=== PATIENT | female | born 1960 | race American Indian/Alaskan Native ===

== ENCOUNTER 2018-06-28 09:30 | Day surgery (SDC) | payer MEDICARE ==
[~2018-06-28 09:30] MED LIST: ANCEF/STERILE WATER 2 GM/20 ML 2 GM/20 ML SYRINGE IV NR; NACL 0.9% 1000 ML 1,000 ML IV SCH
[2018-06-28 10:58] LABS: BUN/Creatinine Ratio 17; Basophils % (Auto) 0.8 % (0.0-1.8); Blood Urea Nitrogen 12 mg/dL (7-17); Calcium 9.1 mg/dL (8.4-10.2); Eosinophils # (Auto) 0.1 K/mm3 (0.0-0.4); Eosinophils % (Auto) 1.9 % (0.0-4.3); Hematocrit 38.5 % (30.3-42.9); Hemolysis Index 4; Lymphocytes # (Auto) 2.9 K/mm3 (1.2-5.4); Lymphocytes % (Auto) 50.5 % (13.4-35.0); Mean Corpuscular HGB Conc 34 % (30-34); Mean Corpuscular Volume 92 fl (79-97); Monocytes # (Auto) 0.4 K/mm3 (0.0-0.8); Monocytes % (Auto) 7.3 % (0.0-7.3); Platelet Count 286 K/mm3 (140-440); Red Cell Distribution Width 13.4 % (13.2-15.2)
[2018-06-28 10:59] LABS: INR 0.9 (0.87-1.13); Partial Thromboplastin Time 25.2 Sec. (24.2-36.6)
[2018-06-28] MEDS ORDERED: XYLOCAINE 2% INFILTRATI ONE (11:49)
[2018-06-28] MEDS ORDERED: HEPARIN/NS 5000 UNIT/500ML(CATH LAB) 1,000 ML IR ONE (11:49)
[2018-06-28] MEDS ORDERED: HEPARIN 10,000 UNITS/10 ML ONE (11:50)
[2018-06-28] MEDS ORDERED: SUBLIMAZE ONE (11:50)
[2018-06-28] MEDS ORDERED: VERSED ONE (11:50)
[2018-06-28] MEDS ORDERED: NACL 0.9% 500 ML 500 ML IV SCH (13:00)
[2018-06-28] MEDS ORDERED: NORCO 5/325 PO ONE (13:35)
--- NOTE | 2018-06-28 14:09 | Short Stay Summary ---
Short Stay Documentation Date of service: 06/28/18 - History Principal diagnosis: PVD with left leg pain H&P: obtained from office - Allergies and Medications Current Medications: Allergies amlodipine Allergy (Verified 06/28/18 09:47) Swelling Penicillins Allergy (Verified 06/28/18 09:47) Rash Active Medications Cefazolin Sodium (Ancef/Sterile Water 2 Gm/20 Ml) 2 gm in 20 mls @ 80 mls/hr IV PREOP NR; Protocol Stop: 06/28/18 23:59 Sodium Chloride (Nacl 0.9% 500 Ml) 500 mls @ 50 mls/hr IV DIRECT JASMINE - Brief post op/procedure progress note Date of procedure: 06/28/18 Pre-op diagnosis: PVD with left leg pain Post-op diagnosis: same Procedure: LLE diagnostic angiography Anesthesia: local Surgeon: CAMILA MANN Estimated blood loss: none Condition: stable - Disposition Condition at discharge: Good Disposition: [id number] TO HOME OR SELFCARE Short Stay Discharge Plan Activity: advance as tolerated Weight Bearing Status: Weight Bear as Tolerated Diet: regular Wound: keep clean and dry, per your surgeon's advice Follow up with: PRIMARY CARE, [Primary Care Provider] - 7 Days
--- NOTE | 2018-06-28 14:30 | Operative Report ---
Operative Report Operative Report: Exam: Left lower extremity angiography Clinical indication: Patient with a history of peripheral vascular disease and left hip and leg pain Date: 06/28/2018 Procedure: Following an expiration of risks, benefits and alternatives; written informed consent was obtained. The patient was brought to the angiographic suite and placed in supine position on the examination table. Initial ultrasound evaluation of her right groin demonstrated a patent right common femoral artery. The patient's right groin was prepped and draped in the usual sterile fashion. 1% lidocaine was used for anesthesia. Her ultrasound guidance, the right common femoral artery was cannulated with a 7 cm 21-gauge needle. A 0.0185R was seen centrally. The needle was removed and a marker sheath placed. The 0.018 guidewirer was exchanged for a 0.035 guidewire and the microcytic exchange for a 5 [place]is[place] vascular sheath. The catheter and guidewire were advanced of the distal abdominal aorta. Angiography was performed in the distal abdominal aorta. This demonstrates a high steep bifurcation however, no gross chronic disease present within the distal abdominal aorta, bilateral common iliac and bilateral external iliac arteries. The guidewire was advanced across the bifurcation and advanced into the common femoral artery. The catheter would not cross secondary to the high bifurcation and the Omni flush catheter was exchanged for a vertebral catheter which was advanced across the bifurcation. Additional angiography was performed with the catheter tip in the left external iliac artery, left superficial femoral artery proximally and left superficial femoral artery distally. All image blood vessels are widely patent. No hemodynamically significant stenosis is evident. The pedal arch is intact. At this point, the catheter and sheath were removed and hemostasis achieved in the right groin using a meningocele arterial closure device. A sterile dressing was applied. The patient tolerated the procedure well. There were no were no immediate post procedure complication. Conscious sedation was performed under the guidance of radiologic nursing. Continuous cardiopulmonary monitoring was utilized. Impression: Left lower extremity angiography demonstrating no significant arterial disease.
[2018-06-28 14:35] VITALS: BP 155/86
== END 2018-06-28 15:07 | disposition home or self-care (01) ==
LOC: CATHLABREC 09:30
PROVIDERS: ATTEND Radiology Diagnostic Radiology
DX: I73.9 Peripheral vascular disease, unspecified (principal); I20.8 Other forms of angina pectoris; E78.00 Pure hypercholesterolemia, unspecified; I48.91 Unspecified atrial fibrillation; I10 Essential (primary) hypertension; G47.30 Sleep apnea, unspecified; K21.9 Gastro-esophageal reflux disease without esophagitis; M19.90 Unspecified osteoarthritis, unspecified site; Z98.890 Other specified postprocedural states; Z79.01 Long term (current) use of anticoagulants; Z88.0 Allergy status to penicillin; Z79.899 Other long term (current) drug therapy; Z87.891 Personal history of nicotine dependence; Z86.718 Personal history of other venous thrombosis and embolism; Z98.51 Tubal ligation status; Z88.8 Allergy status to other drugs, medicaments and biological substances
CPT/HCPCS: 36247; 36415; 75625; 75710; 80048; 85025; 85610; 85730; 99156; 99157; C1751; C1760; C1769; C1887; J1644; J2250; J3010; J7040; Q9967